=== PATIENT | male | born 1955 | race Caucasian/White ===

== ENCOUNTER 2016-04-14 13:52 | Day surgery (SDC) | payer BC ==
[~2016-04-14 13:52] MED LIST: RINGERS SOLUTION,LACTATED 1,000 ML IV PRN
[2016-04-14 16:35] VITALS: BP 154/77
--- NOTE | 2016-04-14 17:54 | OR ---
Operative Report - Dictated Report Narrative: OPERATIVE REPORT DATE OF OPERATION: 04/14/2016 PREOPERATIVE DIAGNOSIS: No prior dedicated colon studies POSTOPERATIVE DIAGNOSIS: 3 mm area of polypoid change at 45 cm and 2 small hyperplastic appearing rectal polyps (pathology pending) OPERATION: Colonoscopy with hot biopsy forceps polypectomies (2 in the rectum and one at 45 cm) SURGEON: Amilcar Hernandez MD ANESTHESIA: THANG Hitchcock CRNA INDICATIONS FOR PROCEDURE: The patient is a 60-year-old male referred for initial colon screening by Dr. June. There is no family history of colon cancer. The patient is currently asymptomatic FINDINGS: 2 small hyperplastic appearing rectal polyps. 3 mm area of hyperplastic appearing change at 45 cm. Otherwise normal colonoscopy to the cecum NARRATIVE OF PROCEDURE: The patient was identified in the holding area, and prior to the administration of anesthetic, a multidisciplinary timeout was observed. With the patient in the left lateral position and after the administration of intravenous sedation, the perineum was inspected. There was no evidence of pilonidal disease or skin breakdown. The external appearance of the anus was normal. Sphincter tone was good. The flexible fiberoptic colonoscope was inserted into the rectum which was insufflated with air. The rectal mucosa and submucosal vascular pattern appeared normal, the prep was seen to be complete. There were 2 small areas of hyperplastic appearing polypoid change. These were bypassed. The scope was advanced through the sigmoid colon, where at 45 cm a slightly larger hyperplastic-appearing polyp was encountered. This was biopsied and entirely destroyed with electrocautery. The site was seen to be complete and hemostatic. The scope was advanced up the descending colon, and around the splenic flexure where the triangular haustral architecture of the transverse colon was seen. The scope was advanced across the transverse colon, around the hepatic flexure to the cecum, where the confluence of tenia and the ileocecal valve were identified. The mucosa at this level appeared normal. The scope was then slowly withdrawn in a circular fashion so that all aspects of colonic mucosa were inspected. The colon was normal in course and caliber. The haustral architecture appeared well preserved throughout with no evidence of external compression. The mucosa and submucosal vascular pattern appeared normal, specifically there was no gross evidence to suggest colitis or inflammatory bowel disease and no AV malformations were seen. No diverticulosis was demonstrated. No additional polyps were encountered. The scope was gradually withdrawn to the level of the rectum. The 2 small hyperplastic patches were destroyed in place with electrocautery. The sites were seen to be complete and hemostatic. As much insufflated air as possible was removed. The scope was withdrawn from the patient and the procedure terminated. The patient tolerated the anesthetic and procedure well without complication and was transferred back to the ambulatory surgery area awake and in stable condition. The patient remained stable throughout a period of postoperative observation. He denied abdominal discomfort, was able to tolerate by mouth intake, and was up without assistance. I shared the operative findings with the patient and he was given copies of the photographs which appear in the medical record. He was discharged home with instructions not to engage in hazardous activity today, but may resume normal activity tomorrow, and advance diet as tolerated. He is to continue those medications as listed in the history and physical exam. I made arrangements to contact him with the biopsy report and will make additional recommendations for treatment and follow-up based upon that result. Reviewed and electronically signed
== END 2016-04-14 13:53 | disposition home or self-care (01) ==
LOC: AMB 13:52
PROVIDERS: ATTEND Surgery
PROC: 0DBE8ZX Excision of Large Intestine, Via Natural or Artificial Opening Endoscopic, Diagnostic (ICD-10-PCS; 2016-04-14)
PROC: 0DBP8ZX Excision of Rectum, Via Natural or Artificial Opening Endoscopic, Diagnostic (ICD-10-PCS; principal; 2016-04-14 15:30)
DX: Z12.11 Encounter for screening for malignant neoplasm of colon (principal); K63.5 Polyp of colon; K62.1 Rectal polyp; Z87.891 Personal history of nicotine dependence; Z68.36 Body mass index [BMI] 36.0-36.9, adult